=== PATIENT | female | born 1960 | race Caucasian/White ===

== ENCOUNTER 2016-02-23 08:57 | Emergency (ER) | payer OTHER, MEDICARE ==
[~2016-02-23] VITALS: Wt 54.0 kg
[~2016-02-23 08:57] MED LIST: ATOR10TA65 PO; BISA10SU18 RC; CALC1TAB92 PO; CHOL2000 PO; DOCU250C58 PO; LACT20SO2 PO; MAGN400T27 PO; METO-448 PO; NA P135E; POLY17PO6 PO; PROM12.510 PO
[2016-02-23] MEDS ORDERED: SODIUM CHLORIDE 0.9% 1L BAG IV* STA (10:11)
--- NOTE | 2016-02-23 10:30 | ERA ---
ER Documentation Chief Complaint Date/Time DATE: 02/23/16 TIME: 10:28 Chief Complaint cough congestion for 1 week with intermittent fevers. HPI 55-year-old female history of developmental delay, Cerebral palsy, hypertension and hyperlipidemia who presents the emergency room with cough and congestion. History mostly provided by methods study analyst. The methods study analyst reports 4 days of cough that is mildly productive with associated subjective fevers. The patient was noted to be tachycardic with significant hypertension. No significant shortness of breath or respiratory distress. ROS All systems reviewed and are negative except as per history of present illness. Medications Home Meds Active Scripts Ibuprofen* (Motrin*) 800 Mg Tab, 800 MG PO Q6H Y for PAIN AND OR ELEVATED TEMP, #30 TAB Prov:BIA HUERTA MD 02/23/16 Oseltamivir Phosphate* (Tamiflu*) 75 Mg Capsule, 75 MG PO BID for 5 Days, CAP Prov:BIA HUERTA MD 02/23/16 Azithromycin* (Zithromax*) 250 Mg Tablet, 250 MG PO DAILY for 4 Days, TAB Prov:BIA HUERTA MD 02/23/16 Metoprolol Tartrate* (Lopressor*) 25 Mg Tab, 25 MG PO BID for 28 Days, TAB Prov:ROBERT YO MD 03/08/15 Lactulose* (Lactulose*) 20 Gm/30 Ml Soln, 20 GM PO TID Y for constipatino for 14 Days, BOT Prov:ROBERT YO MD 03/08/15 Reported Medications Cholecalciferol* (Vitamin D3*) 2,000 Unit Cap, 2000 UNIT PO DAILY 03/03/15 Polyethylene Glycol* (Miralax*) 17 Gm Powd.pack, 17 GM PO DAILY, #30 PACKET 03/03/15 Na Phos,M-B/Na Phos,Di-Ba (ENEMA READY TO USE) 135 Ml Enema, #1995 03/03/15 Docusate Sodium* (Colace*) 250 Mg Capsule, 250 MG PO DAILY 03/03/15 Magnesium Oxide* (Mag-Oxide*) 400 Mg Tablet, 400 MG PO DAILY 03/03/15 Calcium Carbonate/Vitamin D3 (Oyster Shell 500 Mg + Vit D Tb) 1 Tab Tablet, 1 TAB PO DAILY 03/03/15 Atorvastatin (Atorvastatin) 10 Mg Tablet, 10 MG PO DAILY, #30 TAB 02/01/15 Bisacodyl (Laxative Suppository) 10 Mg/Supp.rect Supp.rect, 10 MG RC BID Y for CONSTIPATION 10/23/12 Promethazine Hcl* (Phenergan*) 12.5 Mg Tablet, 25 MG PO Q8 Y for NAUSEA 10/23/12 Allergies Allergies: Coded Allergies: No Known Allergy (Unverified , 02/23/16) PMhx/Soc History of Surgery: Yes (Bilateral Hip Surgery at young age) Anesthesia Reaction: No Hx Neurological Disorder: Yes (Cerebral Palsy, Mental retardation) Hx Respiratory Disorders: No Hx Cardiac Disorders: Yes (HTN) Hx Miscellaneous Medical Probl: Yes (Mental retardation ) Hx Alcohol Use: No Hx Substance Use: No Hx Tobacco Use: No FmHx Family History: No diabetes Physical Exam Vitals Vital Signs Date Time Temp Pulse Resp B/P Pulse Ox O2 Delivery O2 Flow Rate FiO2 02/23/16 13:52 111 19 135/70 100 Room Air 02/23/16 12:48 98.6 116 16 175/107 97 Room Air 02/23/16 11:49 162/106 02/23/16 11:38 112 24 97 Room Air 02/23/16 09:01 98.9 145 22 203/113 97 Physical Exam General: Well developed, well nourished, no acute distress Head: Normocephalic, atraumatic. Eyes: Pupils equally reactive, EOM intact ENT: Moist mucous membranes Neck: Supple, no lymphadenopathy Respiratory: Lungs clear bilaterally, no distress Cardiovascular: Slight tachycardia, no murmurs, rubs, or gallops Abdominal: Soft, non-tender, non-distended, no peritoneal signs : Deferred MSK: No edema, no unilateral swelling, contractures but at baseline Neurologic: Alert and oriented, moving all extremities Skin: No rash Psych: Normal mood Result Diagram: 02/23/16 1030 02/23/16 1030 Results 24 hrs Laboratory Tests Test 02/23/16 10:30 02/23/16 10:40 02/23/16 11:25 Activated Partial Thromboplast Time 26.9Sec Alanine Aminotransferase (ALT/SGPT) 20IU/L Albumin 4.2g/dl Albumin/Globulin Ratio 1.00 Alkaline Phosphatase 93IU/L Anion Gap 19 Aspartate Amino Transf (AST/SGOT) 17IU/L Basophils # 0.010^3/ul Basophils % 0.1% Blood Urea Nitrogen 9mg/dl Calcium Level 9.8mg/dl Carbon Dioxide Level 32mmol/L Chloride Level 99mmol/L Creatinine 0.44mg/dl Direct Bilirubin 0.00mg/dl Eosinophils # 0.110^3/ul Eosinophils % 0.8% Globulin 4.20g/dl Glucose Level 103mg/dl Hematocrit 45.9% Hemoglobin 15.2g/dl INR International Normalized Ratio 0.91 Indirect Bilirubin 0.3mg/dl Lymphocytes # 1.610^3/ul Lymphocytes % 8.9% Mean Corpuscular Hemoglobin 29.4pg Mean Corpuscular Hemoglobin Concent 33.0g/dl Mean Corpuscular Volume 89.1fl Mean Platelet Volume 7.8fl Monocytes # 0.810^3/ul Monocytes % 4.5% Neutrophils # 15.410^3/ul Neutrophils % 85.7% Nucleated Red Blood Cells # 0.010^3/ul Nucleated Red Blood Cells % 0.0/100WBC Platelet Count 32950^3/UL Potassium Level 4.5mmol/L Prothrombin Time 12.2Sec Prothrombin Time Ratio 1.0 Red Blood Count 5.1510^6/ul Red Cell Distribution Width 14.3% Sodium Level 145mmol/L Total Bilirubin 0.3mg/dl Total Protein 8.4g/dl Troponin I < 0.010ng/ml White Blood Count 18.010^3/ul Lactic Acid Level 1.9mmol/L Urine Bilirubin NEGATIVE Urine Clarity CLEAR Urine Color LT. YELLOW Urine Glucose NEGATIVE% Urine Hemoglobin TRACE Urine Ketones NEGATIVE Urine Leukocyte Esterase NEGATIVE Urine Microscopic RBC 0-2/HPF Urine Microscopic WBC NONE SEEN/HPF Urine Nitrite NEGATIVE Urine Specific [place] 1.015 Urine Total Protein NEGATIVE Urine Urobilinogen 0.2 E.U./dL Urine pH 7.0 Current Medications Medications (Trade) Dose Ordered Sig/[place] Route PRN Reason Start Time Stop Time Status Last Admin Dose Admin Sodium Chloride 1670 ml 1,670 ml BOLUS OVER 2 HOURS STAT IV* 02/23/16 10:11 02/23/16 10:12 DC 02/23/16 11:22 Azithromycin 250 ml @ 250 mls/hr ONCE STAT IV 02/23/16 11:46 02/23/16 12:40 DC 02/23/16 12:18 Ceftriaxone Sodium (Rocephin) 50 ml @ 100 mls/hr ONCE STAT IVPB 02/23/16 11:46 02/23/16 12:15 DC 02/23/16 12:18 Oseltamivir Phosphate (Tamiflu) 75 mg ONCE ONCE PO 02/23/16 12:00 02/23/16 12:01 DC 02/23/16 12:18 Azithromycin (Zithromax) 500 mg ONCE ONCE PO 02/23/16 13:00 02/23/16 13:01 DC Procedures/MDM EKG, MONITORS, & DIAGNOSTIC IMAGING: EKG: I reviewed and interpreted a 12-lead EKG. Rhythm: Sinus tachycardia Ectopy: None Intervals: No abnormalities ST segments: No elevations or depressions T waves: No contiguous inversions Chest x-ray: I reviewed and interpreted a 1 view of the chest Mediastinum: No enlargement Cardiac silhouette: No cardiomegaly Airspace: Clear lung plascencia bilaterally without evidence of pneumothorax Bones: No evidence of fracture LAB INTERPRETATION: Leukocytosis but normal lactic acid MEDICAL DECISION MAKING: The patient presents with cough congestion. The patient also has tachycardia and hypertension. Hypertension is possibly related to underlying hypertensive disease. No evidence of aneurysm or dissection. The patient does have tachycardia, consider possible pneumonia. Laboratory testing and diagnostic imaging would be appropriate. Sepsis screening initiated. ER COURSE: The patient's hypertension improved without intervention. The patient received IV fluids and heart rate dramatically improved from 140-111. The patient has subjective improvement. While the patient does have leukocytosis and tachycardia the patient has no evidence of pneumonia and no evidence of systemic illness. This is most likely viral syndrome. Because of the patient' s cough and history of cerebral palsy she was covered for possible community- acquired pneumonia with ceftriaxone and azithromycin. Her chest x-ray however does not show evidence of pneumonia. This could be a viral syndrome and flulike symptoms. Tamiflu provided given the patient's risk and comorbidities. The patient still has slight tachycardia but her blood pressure is improved her lactic acid is normal and there are no focal sources of infection. This is most likely viral process. I am concerned that inpatient hospitalization will expose the patient's nosocomial infections and believe that the risks outweigh the benefits. The patient states motivation to go home. She has appropriate health care at home with good primary care resources. I believe outpatient trial of antibiotics would be reasonable. The patient will be discharged on azithromycin and Tamiflu. Return precautions were discussed with the patient's care provider including fever, worsening symptoms or persistent cough. I kept the patient and/or family informed of laboratory and diagnostic imaging results throughout the emergency room course. DISPOSITION PLAN: We discussed follow up with the patient's primary care doctor within 24 to 48 hours as needed. We also discussed return to the emergency room for worsening symptoms or worsening condition. Discharge Medications: Azithromycin, Motrin, Tamiflu Departure Diagnosis: Primary Impression: Cerebral palsy Qualified Code: G80.9 - Cerebral palsy, unspecified type Additional Impressions: Dehydration Viral syndrome Condition: Stable BIA HUERTA MD Feb 23, 2016 10:30
[2016-02-23 11:05] LABS: ALBUMIN 4.2 g/dl (3.3-4.9); INR 0.91; PARTIAL THROMBOPLASTIN TIME 26.9 Sec (25.0-35.0); PROTIME 12.2 Sec (12.2-14.2)
[2016-02-23 11:06] LABS: CHLORIDE 99 mmol/L (97-110); POTASSIUM 4.5 mmol/L (3.5-5.1); SODIUM 145 mmol/L (135-144)
[2016-02-23 11:08] LABS: ALKALINE PHOSPHATASE 93 IU/L (42-121); ANION GAP 19 (8-16); ASPARTATE AMINO TRANSFERASE 17 IU/L (15-46); BILIRUBIN,INDIRECT 0.3 mg/dl (0-1.1); BILIRUBIN,TOTAL 0.3 mg/dl (0.2-1.3); CARBON DIOXIDE 32 mmol/L (21-31); CREATININE 0.44 mg/dl (0.44-1.00); TOTAL PROTEIN 8.4 g/dl (6.1-8.1)
[2016-02-23 11:09] LABS: ALANINE AMINOTRANSFERASE 20 IU/L (13-69); BLOOD UREA NITROGEN 9 mg/dl (7-20); CALCIUM 9.8 mg/dl (8.4-10.2); GLUCOSE 103 mg/dl (70-220)
[2016-02-23 11:10] LABS: BASOPHILS % 0.1 % (0.0-2.0); EOSINOPHILS # 0.1 10^3/ul (0.0-0.5); EOSINOPHILS % 0.8 % (0.0-7.0); HEMATOCRIT 45.9 % (37.0-47.0); HEMOGLOBIN 15.2 g/dl (12.0-16.0); LYMPHOCYTES # 1.6 10^3/ul (0.8-2.9); LYMPHOCYTES % 8.9 % (15.0-51.0); MEAN CORPUSCULAR HEMOGLOBIN 29.4 pg (29.0-33.0); MEAN CORPUSCULAR VOLUME 89.1 fl (82.0-101.0); MEAN PLATELET VOLUME 7.8 fl (7.4-10.4); MONOCYTE # 0.8 10^3/ul (0.3-0.9); MONOCYTES % 4.5 % (0.0-11.0); NEUTROPHIL # 15.4 10^3/ul (1.6-7.5); NEUTROPHILS % 85.7 % (39.0-77.0); PLATELET COUNT 316 10^3/UL (140-440); RED BLOOD COUNT 5.15 10^6/ul (4.20-5.40); RED CELL DISTRIBUTION WIDTH 14.3 % (11.5-14.5)
[2016-02-23 11:13] LABS: CONDITION 1; LH ANALYZER COMMENTS 1; SUSPECT 1
[2016-02-23 11:24] LABS: TROPONIN-I < 0.010 ng/ml (0.00-0.12)
--- NOTE | 2016-02-23 11:29 | RADRPT ---
PROCEDURE: XR Chest. CLINICAL INDICATION: chest pain TECHNIQUE: Single frontal view of the chest was obtained COMPARISON: 03/03/2015 FINDINGS: There are low lung volumes. There is marked elevation of the right diaphragm with colonic eventrati on. There is mild cardiomegaly. There is no focal consolidation. RPTAT: AA IMPRESSION: Low lung volumes. Elevation of the right diaphragm with colonic eventration. No focal consolidation. No significant interval change. .Alexis Mendenhall MD, MD Date Time Electronically viewed and signed by .Alexis Mendenhall MD, MD on 02/23/2016 11:28 .S/
[2016-02-23 11:35] LABS: ADD UMIC YES; URINE BILIRUBIN (Dip) NEGATIVE (NEGATIVE); URINE BLOOD (Dip) TRACE (NEGATIVE); URINE COLOR LT. YELLOW (YELLOW); URINE GLUCOSE (Dip) NEGATIVE (NEGATIVE); URINE KETONES (Dip) NEGATIVE (NEGATIVE); URINE LEUKOCYTE ESTERASE (Dip) NEGATIVE (NEGATIVE); URINE NITRITE (Dip) NEGATIVE (NEGATIVE); URINE TOTAL PROTEIN (Dip) NEGATIVE (NEGATIVE); URINE UROBILINOGEN (Dip) 0.2 E.U./dL (0.1-1.0)
[2016-02-23 11:42] LABS: URINE RBCS 0-2 /HPF (0)
[2016-02-23] MEDS ORDERED: CEFTRIAXONE 1 GM/50 ML (PMX) 50 ML IVPB STA (11:46)
[2016-02-23] MEDS ORDERED: AZITHROMYCIN 500MG/NS (PMX) 250 ML IV STA (11:46)
[2016-02-23] MEDS ORDERED: OSELTAMIVIR 75 MG CAP PO ONE (12:00)
[2016-02-23 12:48] VITALS: TEMP 98.6
[2016-02-23] MEDS ORDERED: AZITHROMYCIN 250 MG TAB PO ONE (13:00)
[2016-02-23 13:52] VITALS: BP 135/70; PULSE 111; RESP 19
[2016-02-23] MEDS ORDERED: OSLT75C PO (13:52)
[2016-02-23] MEDS ORDERED: IBUP800T25 PO (13:52)
[2016-02-23] MEDS ORDERED: AZIT250T94 PO (13:52)
[2016-02-23] MEDS ORDERED: SOD CHLORIDE 0.9% 500 ML IV STA (13:57)
== END 2016-02-23 17:33 | disposition home or self-care (01) ==
LOC: E/R 08:57
DX: G80.9 Cerebral palsy, unspecified (principal); E86.0 Dehydration; B34.9 Viral infection, unspecified; I10 Essential (primary) hypertension; R07.9 Chest pain, unspecified; R40.2142 Coma scale, eyes open, spontaneous, at arrival to emergency department; R40.2252 Coma scale, best verbal response, oriented, at arrival to emergency department; R40.2362 Coma scale, best motor response, obeys commands, at arrival to emergency department
CPT/HCPCS: 36415; 71010; 80053; 81001; 83605; 84484; 85025; 85610; 85730; 87040; 87086; 93005; 96374; 96375; J0456; J0696; J7030; J7040; Z7502; 81003

== ENCOUNTER 2017-04-20 10:05 | Emergency (ER) | END 2017-04-20 19:07 | disposition home or self-care (01) ==